=== PATIENT | male | born 2000 | race Caucasian/White ===

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

== ENCOUNTER 2021-09-14 16:29 | Emergency (ER) | payer MEDICAID ==
[~2021-09-14] VITALS: Ht 180.3 cm; Wt 61.4 kg
[2021-09-14 17:31] VITALS: BP 122/85
== END 2021-09-14 18:50 | disposition home or self-care (01) ==
LOC: ER 16:30
DX: S92.535A Nondisplaced fracture of distal phalanx of left lesser toe(s), initial encounter for closed fracture (principal); M79.672 Pain in left foot; R07.81 Pleurodynia; Z72.89 Other problems related to lifestyle; X58.XXXA Exposure to other specified factors, initial encounter; Y93.89 Activity, other specified; Y92.89 Other specified places as the place of occurrence of the external cause; Y99.8 Other external cause status
CPT/HCPCS: 29130; 73630; 99283

== ENCOUNTER 2024-01-25 09:13 | Emergency (ER) | payer MEDICAID, OTHER ==
[~2024-01-25] VITALS: Ht 185.4 cm; Wt 85.1 kg
[2024-01-25 09:17] VITALS: TEMP 98.5
[2024-01-25] MEDS ORDERED: PANT-47 PO (12:01)
[2024-01-25] MEDS ORDERED: NAPR-996 PO (12:01)
[2024-01-25] MEDS ORDERED: CYCL-1 PO (12:01)
[2024-01-25] MEDS: pantoprazole 40mg Tablet.DR PO SCH (12:16)
[2024-01-25] MEDS: HYDROcodone/acetaminophen 10/325mg tab PO ONE (12:17)
[2024-01-25 12:25] VITALS: BP 146/102; PULSE 62; RESP 16; O2SAT 99
== END 2024-01-25 12:27 | disposition home or self-care (01) ==
LOC: ER 09:13
DX: S22.32XA Fracture of one rib, left side, initial encounter for closed fracture (principal); R10.9 Unspecified abdominal pain; X58.XXXA Exposure to other specified factors, initial encounter; Y93.89 Activity, other specified; Y92.89 Other specified places as the place of occurrence of the external cause; Y99.8 Other external cause status
CPT/HCPCS: 71046; 99283

== ENCOUNTER 2024-01-26 09:07 | Inpatient (IN) | payer MEDICAID, OTHER ==
[~2024-01-26] VITALS: Ht 185.4 cm; Wt 85.7 kg
[~2024-01-26 09:07] MED LIST: CYCL-1 PO; NAPR-996 PO; PANT-47 PO
[2024-01-26 10:17] LABS: BASOPHILS % (AUTO) 0.1 % (0-1); EOSINOPHILS # (AUTO) 0.2 X10'3 (0-0.9); EOSINOPHILS % (AUTO) 2.3 % (0-6); HEMATOCRIT 44.6 % (42.0-52.0); HEMOGLOBIN 14.4 g/dl (14.0-17.9); LYMPHOCYTES # (AUTO) 0.8 X10'3 (1.1-4.8); LYMPHOCYTES % (AUTO) 7.6 % (21-51); MEAN CORPUSCULAR HEMOGLOBIN 30.1 PG (27.0-31.0); MEAN CORPUSCULAR HGB CONC 32.3 g/dL (33.0-36.5); MEAN CORPUSCULAR VOLUME 93.2 FL (78-98); MEAN PLATELET VOLUME 8.7 FL (7.4-10.4); MONOCYTES # (AUTO) 0.8 X10'3 (0-0.9); NEUTROPHILS # (AUTO) 8.4 X10'3 (1.8-7.7); PLATELET COUNT 235 X10'3 (140-440); RED BLOOD COUNT 4.78 X10'6 (4.70-6.10); RED CELL DISTRIBUTION WIDTH 14.4 % (11.5-14.5); WHITE BLOOD COUNT 10.3 X10'3 (4.5-11.0)
[2024-01-26 10:34] LABS: ALANINE AMINOTRANSFERASE 150 U/L (12-78); ALBUMIN 4.3 G/DL (3.4-5.0); ALBUMIN/GLOBULIN RATIO 1.2 (1.1-1.5); ALKALINE PHOSPHATASE 128 IU/L (46-116); AMYLASE 478 U/L (25-115); ANION GAP 13 (8-16); ASPARTATE AMINO TRANSFERASE 81 U/L (10-37); BILIRUBIN,TOTAL 1.8 MG/DL (0.1-1.0); BLOOD UREA NITROGEN 12 MG/DL (7-18); CALCIUM 9.5 MG/DL (8.5-10.1); CHLORIDE 95 MMOL/L (99-107); CREATININE 0.92 MG/DL (0.60-1.10); GLUCOSE 93 MG/DL (70-104); POTASSIUM 4.1 MMOL/L (3.5-5.1); SODIUM 135 MMOL/L (135-145); TOTAL CARBON DIOXIDE 27.4 MMOL/L (24-32); eCRCL 141 ML/MIN; eGFR > 90 ML/MIN
[2024-01-26] MEDS ORDERED: ringers solution, lacted 1,000 ML IV SCH (10:40)
[2024-01-26] MEDS ORDERED: HYDROmorphone inj. 0.5 MG/0.5 ML DISP.SYRIN IV PRN (11:00)
[2024-01-26] MEDS ORDERED: iohexol 300mg/ml 100ml inj. ONE (11:04)
[2024-01-26 11:16] LABS: LIPASE > 375 U/L (16-77)
[2024-01-26] MEDS: ringers solution, lacted 1,000 ML IV ONE (11:24)
[2024-01-26] MEDS: HYDROmorphone 1 mg/ml syringe IV ONE ×2 (11:46→14:37)
[2024-01-26] MEDS: thiamine 100mg/ml 2ml inj. IV ONE (12:24)
[2024-01-26] MEDS: ondansetron/PF 4mg/2ml inj IV ONE (12:26)
[2024-01-26] MEDS ORDERED: ondansetron/PF 4mg/2ml inj IV PRN (12:35)
[2024-01-26] MEDS ORDERED: mag hydrox/Alum hydrox/simeth 30ml oral suspension PO PRN (12:35)
[2024-01-26] MEDS ORDERED: potassium Cl 40MEQ/1/2NS 520ml 520 ML IV PRN (12:35)
[2024-01-26] MEDS ORDERED: magnesium hydroxide 30ml (MOM) UD suspension PO PRN (12:35)
[2024-01-26] MEDS ORDERED: acetaminophen 325mg tablet PO PRN (12:35)
[2024-01-26] MEDS ORDERED: magnesium 2GM in 50ml NS 50 ML IV PRN (12:35)
[2024-01-26] MEDS: folic acid 1mg/0.2ml inj IV ONE (14:35)
[2024-01-26 15:00] LABS: BILIRUBIN,URINE MODERATE (Neg); CLARITY,URINE CLEAR (Clear); COLOR,URINE YELLOW (Yellow); GLUCOSE, URINE NEGATIVE (Neg); KETONES,URINE >=80 mg/dl (Neg); LEUKOCYTE ESTERASE ,URINE NEGATIVE (Neg); NITRITES, URINE NEGATIVE (Neg); OCCULT BLOOD,URINE NEGATIVE (Neg); PH,URINE 7.5 (4.8-8.0); PROTEIN,URINE 30 mg/dl (Neg)
[2024-01-26 15:03] LABS: UA COLLECTION TYPE NON-SPECIFIED
[2024-01-26 15:13] LABS: WBC,URINE 0-4 /HPF (0-4)
[2024-01-26 15:14] LABS: BACTERIA,URINE FEW /HPF (Neg); MUCUS STRANDS MODERATE /LPF (Neg); SQUAMOUS EPITHELIAL CELL,UR MODERATE /LPF (FEW)
[2024-01-26 16:39] VITALS: BP 156/81; PULSE 63; RESP 16; TEMP 97.4; O2SAT 96
[2024-01-26] MEDS: normal saline 1000ml 1,000 ML IV SCH (16:40)
[2024-01-26] MEDS: nicotine 14mg patch - 24hr TD SCH (16:44)
[2024-01-26] MEDS ORDERED: pantoprazole 40mg Tablet.DR PO PRN (17:30)
[2024-01-26] MEDS: morphine 2 MG/ML inj. syringe IV PRN (17:37)
[2024-01-26 18:00] VITALS: BP 156/81; PULSE 63; RESP 16; TEMP 97.4; O2SAT 96
[2024-01-26] MEDS: docusate sod 100mg capsule PO SCH (20:00)
[2024-01-26] MEDS: K and/or MAG REPLACEMENT MC SCH (20:00)
[2024-01-26] MEDS: heparin, porcine 5000 units/ml vial SQ SCH (20:00)
[2024-01-26] MEDS: HYDROmorphone 1 mg/ml syringe IV PRN (20:54)
[2024-01-26 22:00] VITALS: BP 138/77; PULSE 87; RESP 16; TEMP 98.3; O2SAT 97
[2024-01-27 06:00] VITALS: BP 121/69; PULSE 66; RESP 15; TEMP 98.9; O2SAT 97
[2024-01-27 06:40] LABS: BASOPHILS % (AUTO) 0.1 % (0-1); EOSINOPHILS # (AUTO) 0.3 X10'3 (0-0.9); EOSINOPHILS % (AUTO) 3.4 % (0-6); HEMATOCRIT 39.8 % (42.0-52.0); HEMOGLOBIN 12.9 g/dl (14.0-17.9); LYMPHOCYTES # (AUTO) 0.8 X10'3 (1.1-4.8); LYMPHOCYTES % (AUTO) 9.1 % (21-51); MEAN CORPUSCULAR HGB CONC 32.4 g/dL (33.0-36.5); MEAN CORPUSCULAR VOLUME 92.4 FL (78-98); MEAN PLATELET VOLUME 9.1 FL (7.4-10.4); MONOCYTES # (AUTO) 0.8 X10'3 (0-0.9); MONOCYTES % (AUTO) 9.7 % (2-12); NEUTROPHILS # (AUTO) 6.7 X10'3 (1.8-7.7); NEUTROPHILS % (AUTO) 77.7 % (42-75); PLATELET COUNT 175 X10'3 (140-440); RED BLOOD COUNT 4.31 X10'6 (4.70-6.10); WHITE BLOOD COUNT 8.7 X10'3 (4.5-11.0)
[2024-01-27 07:09] LABS: ALANINE AMINOTRANSFERASE 98 U/L (12-78); ALBUMIN 3.4 G/DL (3.4-5.0); ALKALINE PHOSPHATASE 106 IU/L (46-116); ANION GAP 7 (8-16); ASPARTATE AMINO TRANSFERASE 46 U/L (10-37); BILIRUBIN,TOTAL 1.1 MG/DL (0.1-1.0); BLOOD UREA NITROGEN 5 MG/DL (7-18); BUN/CREATININE RATIO 6.8 (10.0-20.0); CALCIUM 8.3 MG/DL (8.5-10.1); CHLORIDE 100 MMOL/L (99-107); CHOL/HDL RATIO 1.6 (0.00-4.99); CHOLESTEROL 123 MG/DL (0-200); CREATININE 0.74 MG/DL (0.60-1.10); GLUCOSE 85 MG/DL (70-104); HDL CHOLESTEROL 75 MG/DL (35-60); LDL CHOLESTEROL 31 MG/DL (50-100); MAGNESIUM 1.5 MG/DL (1.5-2.4); POTASSIUM 4.2 MMOL/L (3.5-5.1); SODIUM 134 MMOL/L (135-145); TOTAL CARBON DIOXIDE 26.6 MMOL/L (24-32); TOTAL PROTEIN 6.8 G/DL (6.4-8.2); TRIGLYCERIDES 39 MG/DL (20-135); eCRCL 175 ML/MIN; eGFR > 90 ML/MIN
[2024-01-27] MEDS: cyclobenzaprine 10mg tablet PO SCH (07:59)
[2024-01-27 08:00] VITALS: RESP 15; O2SAT 97
[2024-01-27 08:16] LABS: LIPASE > 375 U/L (16-77)
[2024-01-27 10:00] VITALS: BP 143/90; PULSE 87; RESP 16; TEMP 98.3; O2SAT 97
[2024-01-27 18:00] VITALS: BP 132/98; PULSE 89; RESP 13; TEMP 97.6; O2SAT 98
[2024-01-27 22:00] VITALS: BP 136/91; PULSE 82; RESP 16; TEMP 97.1; O2SAT 97
[2024-01-28 06:00] VITALS: BP 141/83; PULSE 91; RESP 19; TEMP 98.1; O2SAT 99
[2024-01-28 08:00] VITALS: RESP 19; O2SAT 99
[2024-01-28 08:04] LABS: BASOPHILS % (AUTO) 0.1 % (0-1); EOSINOPHILS # (AUTO) 0.4 X10'3 (0-0.9); HEMATOCRIT 43.2 % (42.0-52.0); HEMOGLOBIN 13.9 g/dl (14.0-17.9); LYMPHOCYTES # (AUTO) 1.4 X10'3 (1.1-4.8); LYMPHOCYTES % (AUTO) 9.6 % (21-51); MEAN CORPUSCULAR HEMOGLOBIN 29.7 PG (27.0-31.0); MEAN CORPUSCULAR HGB CONC 32.2 g/dL (33.0-36.5); MEAN CORPUSCULAR VOLUME 92.3 FL (78-98); MEAN PLATELET VOLUME 9.5 FL (7.4-10.4); MONOCYTES # (AUTO) 1.4 X10'3 (0-0.9); MONOCYTES % (AUTO) 9.8 % (2-12); NEUTROPHILS # (AUTO) 11.1 X10'3 (1.8-7.7); NEUTROPHILS % (AUTO) 77.5 % (42-75); PLATELET COUNT 223 X10'3 (140-440); RED BLOOD COUNT 4.68 X10'6 (4.70-6.10); RED CELL DISTRIBUTION WIDTH 13.8 % (11.5-14.5); WHITE BLOOD COUNT 14.3 X10'3 (4.5-11.0)
[2024-01-28 08:14] LABS: ALANINE AMINOTRANSFERASE 84 U/L (12-78); ALBUMIN 3.3 G/DL (3.4-5.0); ALBUMIN/GLOBULIN RATIO 0.8 (1.1-1.5); ALKALINE PHOSPHATASE 132 IU/L (46-116); ANION GAP 12 (8-16); ASPARTATE AMINO TRANSFERASE 46 U/L (10-37); BILIRUBIN,TOTAL 1.3 MG/DL (0.1-1.0); BLOOD UREA NITROGEN 5 MG/DL (7-18); BUN/CREATININE RATIO 6.4 (10.0-20.0); CALCIUM 8.7 MG/DL (8.5-10.1); CHLORIDE 96 MMOL/L (99-107); CREATININE 0.78 MG/DL (0.60-1.10); GLUCOSE 59 MG/DL (70-104); MAGNESIUM 1.7 MG/DL (1.5-2.4); POTASSIUM 3.8 MMOL/L (3.5-5.1); SODIUM 133 MMOL/L (135-145); TOTAL CARBON DIOXIDE 25.4 MMOL/L (24-32); TOTAL PROTEIN 7.4 G/DL (6.4-8.2); eCRCL 166 ML/MIN; eGFR > 90 ML/MIN
[2024-01-28 08:18] LABS: LIPASE > 375 U/L (16-77)
[2024-01-28] MEDS: normal saline 1000ml 1,000 ML IV SCH (08:30)
[2024-01-28 10:00] VITALS: BP 131/60; PULSE 89; RESP 17; TEMP 98.9; O2SAT 99
[2024-01-28] MEDS: morphine 2 MG/ML inj. syringe IV PRN (10:09)
[2024-01-28 12:25] LABS: HBSAG SCREEN Negative (Negative); HEP B CORE AB, IGM Negative (Negative); HEP B CORE AB, TOT Negative (Negative)
[2024-01-28 18:00] VITALS: BP 157/91; PULSE 83; RESP 16; TEMP 97.8; O2SAT 99
[2024-01-28 20:00] VITALS: RESP 18; O2SAT 99
[2024-01-28 22:00] VITALS: BP 135/83; PULSE 95; RESP 18; TEMP 97; O2SAT 96
[2024-01-29 06:00] VITALS: BP 138/89; PULSE 84; RESP 18; TEMP 97.5; O2SAT 99
[2024-01-29 07:00] LABS: BASOPHILS % (AUTO) 0.2 % (0-1); EOSINOPHILS # (AUTO) 0.3 X10'3 (0-0.9); EOSINOPHILS % (AUTO) 2.9 % (0-6); HEMATOCRIT 39.8 % (42.0-52.0); LYMPHOCYTES % (AUTO) 10.3 % (21-51); MEAN CORPUSCULAR HGB CONC 32.7 g/dL (33.0-36.5); MEAN CORPUSCULAR VOLUME 91.7 FL (78-98); MEAN PLATELET VOLUME 8.9 FL (7.4-10.4); MONOCYTES # (AUTO) 1.1 X10'3 (0-0.9); MONOCYTES % (AUTO) 11.3 % (2-12); NEUTROPHILS # (AUTO) 7.5 X10'3 (1.8-7.7); NEUTROPHILS % (AUTO) 75.3 % (42-75); PLATELET COUNT 205 X10'3 (140-440); RED BLOOD COUNT 4.34 X10'6 (4.70-6.10); RED CELL DISTRIBUTION WIDTH 13.8 % (11.5-14.5); WHITE BLOOD COUNT 9.9 X10'3 (4.5-11.0)
[2024-01-29 07:15] LABS: ALANINE AMINOTRANSFERASE 62 U/L (12-78); ALBUMIN 2.8 G/DL (3.4-5.0); ALBUMIN/GLOBULIN RATIO 0.7 (1.1-1.5); ALKALINE PHOSPHATASE 117 IU/L (46-116); ANION GAP 8 (8-16); ASPARTATE AMINO TRANSFERASE 31 U/L (10-37); BLOOD UREA NITROGEN 5 MG/DL (7-18); BUN/CREATININE RATIO 7.8 (10.0-20.0); CALCIUM 8.5 MG/DL (8.5-10.1); CHLORIDE 98 MMOL/L (99-107); CREATININE 0.64 MG/DL (0.60-1.10); GLUCOSE 66 MG/DL (70-104); LIPASE 236 U/L (16-77); MAGNESIUM 1.7 MG/DL (1.5-2.4); POTASSIUM 3.7 MMOL/L (3.5-5.1); SODIUM 134 MMOL/L (135-145); TOTAL PROTEIN 6.8 G/DL (6.4-8.2); eCRCL 203 ML/MIN; eGFR > 90 ML/MIN
[2024-01-29 08:00] VITALS: RESP 18; O2SAT 100
[2024-01-29] MEDS ORDERED: HYDROcodone/acetaminophen 5mg/325mg tablet PO PRN (09:35)
[2024-01-29 10:00] VITALS: BP 148/96; PULSE 83; RESP 16; TEMP 98.6; O2SAT 98
[2024-01-29] MEDS ORDERED: HYDR-3965 PO (11:00)
[2024-01-29] MEDS ORDERED: ACAM333T8 PO (11:00)
== END 2024-01-29 12:17 | disposition home or self-care (01) | DRG 440 ==
LOC: ER 09:07 → ED HOLD 12:36 → EDBEDREQ 16:12 → ORTHO 4S 16:26
PROVIDERS: ADMIT Family Medicine; ATTEND Family Medicine
PROC: BW211ZZ Computerized Tomography (CT Scan) of Abdomen and Pelvis using Low Osmolar Contrast (ICD-10-PCS; principal; 2024-01-26)
DX: K85.20 Alcohol induced acute pancreatitis without necrosis or infection (principal); K76.0 Fatty (change of) liver, not elsewhere classified; F10.10 Alcohol abuse, uncomplicated; F12.10 Cannabis abuse, uncomplicated; Z79.899 Other long term (current) drug therapy
CPT/HCPCS: 36415; 74177; 76700; 80053; 80061; 81001; 82150; 83690; 83735; 85025; 86704; 86705; 87081; 87340; 93005; 99285; A6258; G0378; J1170; J1644; J2270; J2405; J3411; J3490; J7030; J7120; Q9967